=== PATIENT | female | born 1990 | race Caucasian/White ===

== ENCOUNTER 2019-03-12 09:01 | Emergency (ER) | payer OTHER ==
[~2019-03-12] VITALS: Ht 157.5 cm; Wt 51.9 kg
[2019-03-12 09:09] VITALS: BP 133/91
--- NOTE | 2019-03-12 09:14 | NUR ---
PATIENT AMBULATED TO BED 2.
--- NOTE | 2019-03-12 09:27 | NUR ---
PT C/O INTERMITTENT LUQ ABD PAIN X 6 WEEKS. PAIN PROGRESSIVELY WORSE FOR THE PAST 5 DAYS AND WAKENED PT UP FROM SLEEP. DENIES N/V/D. NO URINARY COMPLAINTS. DENIES FEVER/CHILLS. PATIENT STATES PAIN OF 6/10 AT THIS TIME; VSS; PATIENT POSITIONED FOR COMFORT; HOB ELEVATED; BEDRAILS UP X1; BED DOWN. ER MD MADE AWARE OF PT STATUS.
[2019-03-12] MEDS ORDERED: FAMOTIDINE 20 MG TAB PO ONE (09:35)
[2019-03-12 09:54] LABS: BASOPHILS % (AUTO) 0.8 % (0.0-2.0); EOSINOPHILS % (AUTO) 0.9 % (0.0-4.0); HEMOGLOBIN 13.2 g/dL (12.0-16.0); LYMPHOCYTES # (AUTO) 1.6 K/uL (2.5-16.5); LYMPHOCYTES % (AUTO) 34.8 % (20.5-51.1); MEAN CORPUSCULAR HEMOGLOBIN 30 pg (27-31); MEAN CORPUSCULAR HGB CONC 33 g/dL (33-37); MEAN CORPUSCULAR VOLUME 89.9 fL (80-94); MONOCYTES # (AUTO) 0.5 K/uL (0.8-1.0); MONOCYTES % (AUTO) 10.3 % (1.7-9.3); NEUTROPHILS # (AUTO) 2.5 K/uL (1.8-7.7); NEUTROPHILS % (AUTO) 53.2 % (42.2-75.2); PLATELET COUNT (AUTO) 298 K/uL (140-450); RED BLOOD CELL COUNT(AUTO) 4.45 MIL/uL (4.20-5.40); RED CELL DISTRIBUTION WIDTH 12.5 % (11.6-13.7); WHITE BLOOD COUNT (AUTO) 4.7 K/uL (4.8-10.8)
[2019-03-12 10:22] LABS: POTASSIUM 3.6 mmol/L (3.5-5.1)
[2019-03-12 10:23] LABS: ALBUMIN 3.8 g/dL (3.4-5.0); ANION GAP 13.1 (8-16); CARBON DIOXIDE 27.5 mmol/L (21-32); CREATININE 0.7 mg/dL (0.6-1.3); TOTAL BILIRUBIN 0.5 mg/dL (0.0-1.0)
[2019-03-12 11:04] VITALS: BP 119/85
--- NOTE | 2019-03-12 11:04 | NUR ---
Patient discharged with v/s stable. Written and verbal after care instructions given and explained. Patient alert, oriented and verbalized understanding of instructions. Ambulatory with steady gait. All questions addressed prior to discharge. ID band removed. Patient advised to follow up with PMD. Rx of Omeprazole given. Patient educated on indication of medication including possible reaction and side effects. Opportunity to ask questions provided and answered.
== END 2019-03-12 11:04 | disposition home or self-care (01) ==
LOC: MED 09:01
DX: K29.70 Gastritis, unspecified, without bleeding (principal)
CPT/HCPCS: 36415; 76705; 80053; 81002; 81025; 83690; 85025; 99284; Q0092